=== PATIENT | male | born 1940 | race Caucasian/White ===

== ENCOUNTER 2017-05-13 06:48 | Emergency (ER) | payer OTHER ==
[~2017-05-13] VITALS: Ht 170.2 cm; Wt 80.0 kg
--- NOTE | 2017-05-13 07:02 | ERD ---
ER Documentation Chief Complaint Chief Complaint HPI 76-year-old man brought in by EMS after syncopal episode, he states he has been feeling dizzy and weak. He is status post surgical excision of liver mass recently secondary to liver carcinoma, he states he was an alcoholic previously. He denies blood per rectum or melena, no seizure activity, no vomiting or diarrhea, no chest pain or shortness of breath. Patient denies headache or head injury, the syncopal episode was witnessed by his daughter and he was helped down to the ground. Patient was transported here by EMS without further complications. ROS All systems reviewed and are negative except as per history of present illness. Medications Home Meds Reported Medications Ranitidine Hcl* (Ranitidine Hcl*) 300 Mg Tablet, 300 MG PO HS, #30 TAB 05/13/17 Lisinopril* (Lisinopril*) 20 Mg Tablet, 20 MG PO DAILY, #30 TAB 05/13/17 Terazosin Hcl* (Terazosin Hcl*) 2 Mg Capsule, 2 MG PO BID, CAP 05/13/17 Furosemide* (Furosemide*) 20 Mg Tablet, 20 MG PO DAILY, #60 TAB 05/13/17 Simvastatin* (Zocor*) 20 Mg Tablet, 20 MG PO QHS, #30 TAB 05/13/17 Metformin* (Glucophage*) 500 Mg Tab, 500 MG PO BID, #30 TAB 05/13/17 Allergies Allergies: Coded Allergies: No Known Allergy (Unverified , 05/13/17) PMhx/Soc Liver carcinoma status post surgical excision recently FmHx Family History: No diabetes Physical Exam Vitals Vital Signs Date Time Temp Pulse Resp B/P Pulse Ox O2 Delivery O2 Flow Rate FiO2 05/13/17 08:05 97.9 16 90/54 100 05/13/17 07:35 Nasal Cannula 2 05/13/17 07:27 97.9 66 16 89/50 100 Physical Exam GENERAL: Well-developed, appears dehydrated, afebrile HEENT: Dry mucous membranes, pale conjunctiva, no cervical spine tenderness or step-off deformities, no goiter, no jaundice or icterus, extraocular movements intact without pain. No submandibular induration, and no pharyngeal erythema NEURO: Alert and oriented 3, cranial nerves II through XII intact bilaterally, pupils equal round reactive to light, no focal deficits or facial asymmetry, CARDIAC: Regular rate and rhythm, no murmurs rubs or gallops LUNGS: Clear bilaterally no wheezing crackles or stridor ABDOMEN: Soft nontender, no guarding, no rigidity, no rebound, no psoas sign no obturator sign. Well-healing surgical site to the abdominal midline SKIN: Warm and dry to touch, no abrasions, contusions, or hematomas, no lacerations, no ecchymosis, no target lesions, and without ulcers EXTREMITIES: No clubbing cyanosis or edema, calves are bilaterally symmetrical, no Homans sign, no popliteal cord sign. Distal pulses equal and bilateral PSYCH: Normal affect without agitation or irritability Result Diagram: 05/13/17 0732 05/13/17 0732 Results 24 hrs Laboratory Tests Test 05/13/17 07:32 White Blood Count 22.210^3/ul Red Blood Count 2.5910^6/ul Hemoglobin 7.7g/dl Hematocrit 24.0% Mean Corpuscular Volume 92.7fl Mean Corpuscular Hemoglobin 29.7pg Mean Corpuscular Hemoglobin Concent 32.1g/dl Red Cell Distribution Width 18.1% Platelet Count 63083^3/UL Mean Platelet Volume 10.1fl Neutrophils % 79.7% Lymphocytes % 7.7% Monocytes % 7.2% Eosinophils % 4.3% Basophils % 0.2% Nucleated Red Blood Cells % 0.0/100WBC Neutrophils # 17.710^3/ul Lymphocytes # 1.710^3/ul Monocytes # 1.610^3/ul Eosinophils # 1.010^3/ul Basophils # 0.110^3/ul Nucleated Red Blood Cells # 0.010^3/ul Prothrombin Time 17.5Sec Prothrombin Time Ratio 1.4 INR International Normalized Ratio 1.41 Activated Partial Thromboplast Time 38.3Sec Sodium Level 140mmol/L Potassium Level 4.5mmol/L Chloride Level 111mmol/L Carbon Dioxide Level 22mmol/L Anion Gap 12 Blood Urea Nitrogen 27mg/dl Creatinine 1.46mg/dl Glucose Level 118mg/dl Calcium Level 7.4mg/dl Total Bilirubin 0.4mg/dl Direct Bilirubin 0.00mg/dl Indirect Bilirubin 0.4mg/dl Aspartate Amino Transf (AST/SGOT) 30IU/L Alanine Aminotransferase (ALT/SGPT) 35IU/L Alkaline Phosphatase 189IU/L Ammonia 12umol/l Troponin I < 0.012ng/ml Total Protein 4.8g/dl Albumin 1.7g/dl Globulin 3.10g/dl Albumin/Globulin Ratio 0.54 Lipase 11U/L Current Medications Medications (Trade) Dose Ordered Sig/Enio Route PRN Reason Start Time Stop Time Status Last Admin Dose Admin Sodium Chloride 1,000 ml @ 2,000 mls/hr Q30M STAT IV 05/13/17 07:07 05/13/17 07:36 DC 05/13/17 08:02 Calcium Gluconate 1 gm/Dextrose 110 ml @ 110 mls/hr ONCE ONCE IVPB 05/13/17 09:00 05/13/17 09:59 Cefepime HCl 50 ml @ 100 mls/hr ONCE ONCE IVPB 05/13/17 09:30 05/13/17 09:59 Vancomycin HCl (Vancocin) 250 ml @ 125 mls/hr ONCE IVPB 05/13/17 09:30 05/13/17 11:29 Procedures/MDM IV line was established patient was placed on teletypesetter monitor rhythm strip revealed a sinus rhythm at about 70 bpm with upright P and T waves. Patient was afebrile EKG performed, read by me revealed a normal sinus rhythm at 69 bpm, left axis deviation, right bundle branch block, no concerning ST elevations or depressions noted. I administered 2 L normal saline intravenously for dehydration and initial hypotension. CBC reveals a leukocytosis of 22 and anemia with a hematocrit of 24, electrolytes revealed dehydration with a BUN/creatinine of 27/1.5, liver function tests unremarkable, troponin negative, ammonia level low CT scan of the abdomen and pelvis revealed metastatic lesions and lymphadenopathy, lesion to the liver, and fluid collection abutting the lesser curvature of the stomach, positive for ascites. Please refer to radiologist dictation for full report. I later discussed the CT scan results with the [facility] physician and he confirmed that most of these findings are old, fluid collection is most likely postoperative. One view chest x-ray performed, read by me revealed a right lower lobe infiltrate and bilateral hilar congestion, no acute infiltrates, no pneumothorax Patient was found anemic here and had a syncopal episode, I will transfuse him 2 units PRBC IV over 4 hours. Critical Care: Time: 45 minutes, this was time separate from other billable procedures. Treatments/Evaluations: Close monitoring and treatment of unstable vital signs, cardiorespiratory, and neurologic status, while maintaining tight balance of fluid, respiratory, and cardiac interventions. The patient was afebrile but has a right lower lobe infiltrate and a leukocytosis so I treated him here with cefepime 1 g IV and vancomycin 1 g IV, blood culture was also ordered prior to antibiotic administration and lactic acid level is pending and I will follow-up. I spoke to [facility] physician who recommended transfer to [facility] for continued medical management and surgery consultation, [place] authorization number is [id number]. Departure Diagnosis: Primary Impression: Hypotension Hypotension type: unspecified hypotension type Qualified Code: I95.9 - Hypotension, unspecified hypotension type Additional Impressions: Autonomic instability GI bleed GI bleed type/associated pathology: unspecified gastrointestinal hemorrhage type Qualified Code: K92.2 - Gastrointestinal hemorrhage, unspecified gastrointestinal hemorrhage type Pneumonia Pneumonia type: due to unspecified organism Laterality: right Lung location : lower lobe of lung Qualified Code: J18.1 - Pneumonia of right lower lobe due to infectious organism Acute kidney injury Metastatic carcinoma to liver Dehydration Anemia Anemia type: unspecified type Qualified Code: D64.9 - Anemia, unspecified type Condition: Serious JB DAVIES MD May 13, 2017 07:02
[2017-05-13] MEDS ORDERED: SOD CHLORIDE 0.9% 1,000 ML IV STA (07:07)
[2017-05-13 07:27] VITALS: Ht 170.2 cm; Wt 80.0 kg
[2017-05-13 07:46] LABS: ABNORMAL IP MESSAGE 1; BASOPHIL # 0.1 10^3/ul (0.0-0.1); BASOPHILS % 0.2 % (0.0-2.0); EOSINOPHILS % 4.3 % (0.0-7.0); HEMOGLOBIN 7.7 g/dl (14.0-18.0); LYMPHOCYTES # 1.7 10^3/ul (0.8-2.9); LYMPHOCYTES % 7.7 % (15.0-51.0); MEAN CORPUSCULAR HEMOGLOBIN 29.7 pg (29.0-33.0); MEAN CORPUSCULAR HGB CONC 32.1 g/dl (32.0-37.0); MEAN CORPUSCULAR VOLUME 92.7 fl (82.0-101.0); MEAN PLATELET VOLUME 10.1 fl (7.4-10.4); MONOCYTE # 1.6 10^3/ul (0.3-0.9); MONOCYTES % 7.2 % (0.0-11.0); NEUTROPHIL # 17.7 10^3/ul (1.6-7.5); NEUTROPHILS % 79.7 % (39.0-77.0); PLATELET COUNT 170 10^3/UL (140-415); POSITIVE DIFF @See below; RED BLOOD COUNT 2.59 10^6/ul (4.70-6.10); RED CELL DISTRIBUTION WIDTH 18.1 % (11.5-14.5); WHITE BLOOD COUNT 22.2 10^3/ul (4.8-10.8)
[2017-05-13 08:08] LABS: INR 1.41; PROTIME 17.5 Sec (11.9-14.9); PT RATIO 1.4
[2017-05-13 08:09] LABS: PARTIAL THROMBOPLASTIN TIME 38.3 Sec (25.0-35.0)
[2017-05-13 08:14] LABS: ALANINE AMINOTRANSFERASE 35 IU/L (13-69); ALBUMIN 1.7 g/dl (3.3-4.9); ALBUMIN/GLOBULIN RATIO 0.54; ALKALINE PHOSPHATASE 189 IU/L (42-121); ANION GAP 12 (8-16); ASPARTATE AMINO TRANSFERASE 30 IU/L (15-46); BILIRUBIN,INDIRECT 0.4 mg/dl (0-1.1); BILIRUBIN,TOTAL 0.4 mg/dl (0.2-1.3); BLOOD UREA NITROGEN 27 mg/dl (7-20); CALCIUM 7.4 mg/dl (8.4-10.2); CARBON DIOXIDE 22 mmol/L (21-31); CHLORIDE 111 mmol/L (97-110); CREATININE 1.46 mg/dl (0.61-1.24); GLUCOSE 118 mg/dl (70-220); POTASSIUM 4.5 mmol/L (3.5-5.1); SODIUM 140 mmol/L (135-144); TOTAL PROTEIN 4.8 g/dl (6.1-8.1)
[2017-05-13 08:25] LABS: TROPONIN-I < 0.012 ng/ml (0.00-0.12)
--- NOTE | 2017-05-13 08:39 | RADRPT ---
PROCEDURE: XR Chest. CLINICAL INDICATION: Chest pain, upper GI bleed TECHNIQUE: Single frontal view of the chest was obtained. COMPARISON: None FINDINGS: The heart is within normal limits. The thoracic aorta is calcified. There is a mild patchy right upper lobe and right lower lobe infiltrate. There are small bilateral p leural effusions. There is no pneumothorax. RPTAT: AA IMPRESSION: Mild patchy right upper lobe and right lower lobe infiltrates. Small bilateral pleural effusions. Calcified aorta consistent with atherosclerotic disease. .Sandip Ragsdale MD, MD Date Time Electronically viewed and signed by .Sandip Ragsdale MD, MD on 05/13/2017 08:39 .S/
--- NOTE | 2017-05-13 08:57 | RADRPT ---
PROCEDURE: CT Abdomen and Pelvis without contrast. CLINICAL INDICATION: Abdominal pain. TECHNIQUE: Routine abdominopelvic CT was performed without intravenous contrast and reformatted in the axial, coronal, and sagittal planes. DICOM images are available. Radiation dose: CTDIvol (mGy) = 11.9; total DLP(mGy-cm) = 723 One or more of the following radiation dose techniques were used: -Automated exposure control. -Adjust of the mA and/or kV according to patient size. -Use of iterative reconstruction technique. COMPARISON: None. FINDINGS: Marked mural thickening involving the distal body of the stomach, consistent with neoplasm. There ar e adjacent surrounding mesenteric/peritoneal soft tissue nodules, consistent with neoplasm. Indeterminate loculated fluid collection versus cystic lesion observed along the lesser curvature of stomach, measuring up to 16 x 10 cm in the coronal plane. There is an additional nonspecific cystic structure measuring up to 3 cm in the left paracolic gutter. There is also a nonspecific 3 cm cysti c structure identified along the left medial liver resection margin. Marked heterogeneity of the liver with evidence of prior postsurgical change and suspected liver met astasis. Biliary system is nondilated. No evidence of bowel obstruction. No hydronephrosis or nephrolithiasis. Multiple low-density lesions in the left kidney are likely cys ts. There are also tiny nonobstructive calcification within the left kidney. Massive enlargement of the prostate gland measuring up to 6.0 cm in AP dimension. Diffuse anasarca. Small to moderate bilateral pleural effusions. IMPRESSION: Please note that this is a markedly limited evaluation without intravenous contrast. Marked mural thickening of the distal stomach with surrounding peritoneal/mesenteric nodularity, con sistent with neoplasm. Postoperative changes in the liver with marked heterogeneity, presumably on the basis of intrahepati c metastasis. Large indeterminate loculated fluid collection, which appears to be abutting the lesser curvature of the stomach. Small to moderate bilateral pleural effusions. Call report was made to Dr. Toledo on 05/13/2017 at 8:55 AM. RPTAT: EE .Abiel Marrufo MD, Date Time Electronically viewed and signed by .Abiel Marrufo MD, on 05/13/2017 09:04 .C/
[2017-05-13] MEDS ORDERED: CALCIUM GLUCONATE 10% 1 GM in DEXTROSE 5% 100 ML IVPB ONE (09:00)
[2017-05-13] MEDS ORDERED: METF500T4 PO (09:23)
[2017-05-13] MEDS ORDERED: SIMV20TA PO (09:29)
[2017-05-13] MEDS ORDERED: FURO20TA3 PO (09:29)
[2017-05-13] MEDS ORDERED: LISI20TA11 PO (09:30)
[2017-05-13] MEDS ORDERED: RANI300T PO (09:30)
[2017-05-13] MEDS ORDERED: CEFEPIME 1GM/50 ML (PMX) 50 ML IVPB ONE (09:30)
[2017-05-13] MEDS ORDERED: TERA2CAP3 PO (09:30)
[2017-05-13] MEDS ORDERED: VANCOMYCIN 1 GM (PMX) 250 ML IVPB SCH (09:30)
[2017-05-13 11:23] VITALS: BP 113/61; PULSE 60; RESP 16; TEMP 98
== END 2017-05-13 12:00 | disposition short-term general hospital (02) ==
LOC: E/R 06:48
DX: I95.9 Hypotension, unspecified (principal); G90.8 Other disorders of autonomic nervous system; K92.2 Gastrointestinal hemorrhage, unspecified; J18.1 Lobar pneumonia, unspecified organism; N17.9 Acute kidney failure, unspecified; C78.7 Secondary malignant neoplasm of liver and intrahepatic bile duct; E86.0 Dehydration; D64.9 Anemia, unspecified; Z79.84 Long term (current) use of oral hypoglycemic drugs
CPT/HCPCS: 36430; 71010; 74176; 80053; 82140; 83605; 83690; 84484; 85025; 85610; 85730; 86644; 86850; 86900; 86901; 86920; 87040; 93005; 96374; 99291; J0610; J0692; J7030; P9016